=== PATIENT | female | born 1935 | race Caucasian/White ===

== ENCOUNTER 2017-08-15 12:25 | Inpatient (IN) | payer OTHER, BC ==
[~2017-08-15] VITALS: Ht 152.4 cm; Wt 72.7 kg
--- NOTE | ~2017-08-15 | EKG ---
[address] [place] [address] ELECTROCARDIOGRAM REPORT Name: HOSSEIN CAMPO Room #: 361-P [facility] M.R.#: [id number] Admission: 08/15/17 Attend Phys: Nick Murguia MD Discharge: Date of : 33 Report #: [id number] THIS REPORT FOR: //name// [facility] ED Test Date: 2017-08-15 Test Time: 13:03:59 Pat Name: HOSSEIN CAMPO Department: Room: [facility] Gender: F Crude Unit Operator: BRIAN : 1935 Requested By: Art Torres Order Number: [id number] MD: Almas Daniel Measurements Intervals [place] Rate: 86 P: 69 NH: 221 QRS: 53 QRSD: 90 T: 63 QT: 390 QTc: 467 Interpretive Statements Sinus rhythm Borderline prolonged NH interval Nonspecific ST segment abnormality Compared to ECG 04/13/2014 11:49:22 [address] change in the ST segments Electronically Signed On 08-16-2017 14:16:32 [employer] DEVELOPMENT [employer]NAGER by Almas Daniel [email or web address] <ELECTRONICALLY SIGNED> By: Almas Daniel MD, [facility] 08/16/17 1416 1303 1303 Almas Daniel MD, [facility] /EPI
[~2017-08-15 12:25] MED LIST: CENTRUM SILVER1 EAC4 PO; FISH OIL 1,001000 M2 PO; HYDROCHLOROTH12.5 MG PO; LISINOPRIL40 MG PO; METROGEL55 GM; METROGEL60 GM; NASONEX17 GM; NORCO 5-325 TA1 EACH PO; SIMVASTATIN20 MG PO; SYNTHROID100 MCG PO; TEMOVATE15 GM TOP; VALIUM2 MG PO; VENTOLIN HFA 1818 GM; VITAMIN D31000 UNIT PO; ZADITOR5 M1 OPHTHALMIC
[2017-08-15 12:33] VITALS: BP 192/82
[2017-08-15] MEDS ORDERED: ZOCOR20 MG PO (12:48)
[2017-08-15] MEDS ORDERED: SYNTHROID50 MCG PO (12:48)
[2017-08-15] MEDS ORDERED: ZESTRIL40 MG PO (12:49)
[2017-08-15] MEDS ORDERED: NASONEX17 GM NASAL (12:49)
[2017-08-15] MEDS ORDERED: HYDROCHLOROTH12.5 M1 PO (12:49)
[2017-08-15] MEDS ORDERED: CLOBETASOL EMOL15 GM TP (12:50)
[2017-08-15 13:13] LABS: HEMATOCRIT 44.5 % (37.0-47.0); HEMOGLOBIN 15.3 gm/dL (12.0-15.0); MCH 30.4 pg (26.0-34.0); MCHC 34.3 g/dL (28.0-37.0); MCV 88.6 fL (80.0-100.0); RBC 5.03 mil/uL (4.20-5.00); RDW 13.4 % (10.5-14.5); WBC 10.2 thou/uL (4.0-11.0)
[2017-08-15 13:32] LABS: APTT 31.1 Seconds (24.5-32.8); PROTIME 10.4 Seconds (9.3-11.4)
[2017-08-15 14:23] LABS: ANION GAP 12 mmol/L (7-16); BUN 16 mg/dL (7-18); CALCIUM 10.6 mg/dL (8.5-10.1); CHLORIDE 101 mmol/L (98-107); CO2 26 mmol/L (21-32); CREATININE 0.9 mg/dL (0.6-1.0); GLUCOSE 114 mg/dL (74-106); POTASSIUM 3.8 mmol/L (3.5-5.1); SODIUM 139 mmol/L (136-145); TROPONIN-I < 0.04 ng/mL (<0.06)
[2017-08-15 15:20] LABS: URINE BILIRUBIN NEGATIVE (Negative); URINE BLOOD NEGATIVE (Negative); URINE COLOR YELLOW; URINE GLUCOSE-RANDOM* NEGATIVE (Negative); URINE KETONES NEGATIVE (Negative); URINE LEUKOCYTES-REFLEX NEGATIVE (Negative); URINE PROTEIN (DIPSTICK) NEGATIVE (Negative); URINE UROBILINOGEN 0.2 E.U./dl (0.2-1.0)
[2017-08-15 15:42] VITALS: BP 155/59
[2017-08-15 16:32] VITALS: BP 162/71
[2017-08-15 16:55] VITALS: BP 141/68
[2017-08-15 19:39] VITALS: BP 130/60
[2017-08-15 23:05] LABS: GLYCOHEMOGLOBIN (HGB A1C) 5.5 % (4.8-5.6)
[2017-08-15 23:45] VITALS: BP 114/53
[2017-08-16 04:21] VITALS: BP 107/51
[2017-08-16 07:06] LABS: HEMATOCRIT 42.2 % (37.0-47.0); MCH 29.7 pg (26.0-34.0); MCHC 33.3 g/dL (28.0-37.0); MCV 89.2 fL (80.0-100.0); RBC 4.73 mil/uL (4.20-5.00); RDW 13.5 % (10.5-14.5); WBC 11.2 thou/uL (4.0-11.0)
[2017-08-16 07:15] LABS: CALCIUM 9.9 mg/dL (8.5-10.1); POTASSIUM 3.6 mmol/L (3.5-5.1)
[2017-08-16 07:24] LABS: CHOLESTEROL 169 mg/dL (<200); HDL CHOLESTEROL 56 mg/dL (>40); LDL CHOLESTEROL 89 mg/dL (<100); TRIGLYCERIDE 124 mg/dL (<150); VLDL 25 mg/dL (<40)
[2017-08-16 08:32] VITALS: BP 168/60
[2017-08-16 13:03] VITALS: BP 137/52
[2017-08-16] MEDS ORDERED: ASPIR 8181 MG PO (15:08)
[2017-08-16] MEDS ORDERED: PROTONIX40 M1 PO (15:09)
[2017-08-16 15:14] VITALS: BP 137/52
[2017-08-16 15:19] VITALS: BP 137/52
== END 2017-08-16 15:49 | disposition home or self-care (01) | DRG 69 ==
LOC: ER 12:25 → EROBS 14:37 → 3W 16:40
PROVIDERS: Emergency Medicine; Hospitalist; Psychiatry & Neurology Neurology
DX: G45.9 Transient cerebral ischemic attack, unspecified (principal); I10 Essential (primary) hypertension; I73.9 Peripheral vascular disease, unspecified; E78.00 Pure hypercholesterolemia, unspecified; M19.90 Unspecified osteoarthritis, unspecified site; E03.9 Hypothyroidism, unspecified; J45.909 Unspecified asthma, uncomplicated; G43.909 Migraine, unspecified, not intractable, without status migrainosus; Z91.013 Allergy to seafood; Z88.0 Allergy status to penicillin; Z88.1 Allergy status to other antibiotic agents; Z88.6 Allergy status to analgesic agent; Z88.8 Allergy status to other drugs, medicaments and biological substances; Z87.891 Personal history of nicotine dependence; Z79.899 Other long term (current) drug therapy; Z79.82 Long term (current) use of aspirin
CPT/HCPCS: 10779